=== PATIENT | female | born 1975 | race Caucasian/White ===

== ENCOUNTER → 2016-09-22 | Outpatient (CLI) | payer OTHER ==
[~2016-09-22] MED LIST: ACET-1256 PO; ATEN50TA8 PO; CHOL1000 PO; CHOL100027 PO; GADAVIST IV PRN; LSX20 PO; RXC5 PO; SYN100 PO; VITACAP26 PO
--- NOTE | 2016-09-22 11:00 | DIAGNOSTIC IMAGING REPORT ---
MRI OF THE CERVICAL SPINE WITH AND WITHOUT CONTRAST CLINICAL HISTORY: Neck pain radiating into right upper extremity. COMPARISON: Cervical spine radiographs June 25, 2011. TECHNIQUE: Utilizing a 1.5 Mary magnet and dedicated coil, multiplanar, multiecho imaging of the cervical spine was performed before and after intravenous administration of 12 of Gadavist. FINDINGS: There are findings consistent with a C5-C6 anterior discectomy and fusion. Cervical cord signal and caliber are normal. There is no intracanalicular mass or fluid collection. A 1 cm T2 hyperintense lesion within the T2 vertebral body is slightly T1 hyperintense likely reflects a hemangioma. C2-C3: The central canal and neural foramen are patent. C3-C4: The central canal and neural foramen are patent. C4-C5: There is mild posterior disc osteophyte complex. There is minimal narrowing of the central canal and left neural foramen. The right neural foramen is patent. C5-C6: Postsurgical findings are noted. There is no central canal stenosis. The right neural foramen is patent. The left neural foramen is also patent. C6-C7: There is posterior disc osteophyte complex with a superimposed right paracentral/right foraminal disc protrusion. There is moderate narrowing of the right aspect of the canal and severe narrowing of the right neural foramen. There is mild narrowing of the left neural foramen. C7-T1: A left paracentral disc protrusion is noted which results in mild to moderate narrowing of the left aspect of the canal. The neural foramen are patent. IMPRESSION: 1. Status post C5-C6 anterior discectomy and fusion. 2. Moderate to large right paracentral/right foraminal disc protrusion at C6-C7 that results in moderate narrowing of the right aspect of the canal and severe narrowing of the right neural foramen. 3. Small left paracentral disc protrusion at C6-C7. 4. Small to moderate left paracentral disc protrusion at T1-T2 that results in moderate narrowing of the left aspect of the canal. Electronically signed by: Meir Hood M.D. 09/22/2016 10:59 AM Dictated Date/Time: 09/22/2016 10:49 AM
== END | disposition home or self-care (01) ==
LOC: C.MRIBC 09:17
PROVIDERS: ATTEND Orthopaedic Surgery Orthopaedic Surgery of the Spine
DX: M50.90 Cervical disc disorder, unspecified, unspecified cervical region (principal)

== ENCOUNTER 2016-10-15 05:25 | Inpatient (IN) | payer OTHER ==
[2016-10-06 13:51] VITALS: Ht 165.1 cm; Wt 125.7 kg
--- NOTE | 2016-10-06 14:23 | PAT Medication Instructions ---
Service Date Oct 06, 2016. Current Home Medication List Acetaminophen (Tylenol), 1,000 MG PO PRN Atenolol (Tenormin), 50 MG PO QAM Cholecalciferol (Vitamin D3), 1 TAB PO QAM Furosemide (Lasix *), 20 MG PO PRN Vitamins C & E (Vitamin C), 1 TAB PO PRN Medication Instructions For Your Scheduled Surgery - Hold the following medications the morning of surgery: Vitamins C (Vitamin C), 1 TAB PO PRN Furosemide (Lasix *), 20 MG PO PRN Cholecalciferol (Vitamin D3), 1 TAB PO QAM - Take the following medications the morning of surgery with a sip of water: Atenolol (Tenormin), 50 MG PO QAM Acetaminophen (Tylenol), 1,000 MG PO PRN (if needed) - Take the following medications as scheduled the night before surgery: Acetaminophen (Tylenol), 1,000 MG PO PRN (if needed) Furosemide (Lasix *), 20 MG PO PRN (if needed) If you have any questions please call us at [phone] or [phone] or [phone]
--- NOTE | 2016-10-06 14:55 | DIAGNOSTIC IMAGING REPORT ---
CHEST 2 VIEWS ROUTINE CLINICAL HISTORY: Preoperative chest COMPARISON STUDY: No previous studies for comparison. FINDINGS: The heart is mildly enlarged. There is no failure. There is no focal pulmonary consolidation. There are no pleural effusions. Postsurgical changes are visualized within the cervical spine.[ IMPRESSION: No active disease in the chest. Electronically signed by: Leif Eid M.D. 10/06/2016 2:54 PM Dictated Date/Time: 10/06/2016 2:53 PM
[2016-10-06 14:57] LABS: URINE APPEARANCE CLEAR (CLEAR); URINE BILIRUBIN NEG (NEG); URINE COLOR YELLOW; URINE NITRITE NEG (NEG); URINE SPECIFIC GRAVITY 1.007 (1.000-1.030); UROBILINOGEN NEG (NEG)
[2016-10-06 15:13] LABS: MANUAL MICROSCOPIC REQUIRED? NO; REVIEW REQ? NO
[2016-10-06 15:56] LABS: BASO % 0.6 %; BASO ABS # 0.04 K/uL (0-0.2); COMPLETE YES; EOS % 5.2 %; HEMATOCRIT 39.1 % (37-47); IG% 0.1 %; LYMPH % 20.5 %; LYMPH ABS # 1.42 K/uL (1.2-3.4); MEAN CELL VOLUME 91.1 fL (80-100); MEAN CORPUSCULAR HEMOGLOBIN 29.6 pg (25-34); MEAN CORPUSCULAR HGB CONC 32.5 g/dl (32-36); MEAN PLATELET VOLUME 11.5 fL (7.4-10.4); MONO % 4.3 %; NEUT % 69.3 %; PLATELET COUNT 233 K/uL (130-400); RED BLOOD COUNT 4.29 M/uL (4.2-5.4); WHITE BLOOD COUNT 6.91 K/uL (4.8-10.8)
[2016-10-06 16:17] LABS: BUN/CREATININE RATIO 9.8 (10-20); CALCIUM 8.9 mg/dl (8.5-10.1); CREATININE 1.1 mg/dl (0.60-1.20); POTASSIUM 4.3 mmol/L (3.5-5.1)
--- NOTE | 2016-10-08 14:05 | HISTORY & PHYSICAL EXAMINATION ---
DATE OF ADMISSION: 10/15/2016 CHIEF COMPLAINT: Neck and right arm pain. HISTORY OF PRESENT ILLNESS: The patient is a 41-year-old female with a history of complaints as above. Prior C5-C6 ACDF done by myself and did well. The approach was from the right side at that time. She reports she has developed recurrent symptoms that severelylimit her quality of life. She has subjective numbness and weakness in the right hand. due to her quality of life and MR findings which indicated a large disk herniation at C6-C7 below the prior fusion done at C5-C6, she desires surgery. PAST MEDICAL HISTORY: Hypertension and obesity. PAST SURGICAL HISTORY: Hysterectomy, right total hip arthroplasty, prior ACDF C5-C6, and cholecystectomy. MEDICATIONS: Atenolol. ALLERGIES: None. FAMILY HISTORY: Denies spine problems, cancer, bleeding, diathesis or problems with anesthesia. SOCIAL HISTORY: The patient does not use alcohol or tobacco. REVIEW OF SYSTEMS: She denies incontinence, chest pain, shortness of breath, dyspnea on exertion, history of cancer, diabetes or bleeding tendency. PHYSICAL EXAMINATION: GENERAL: The patient is a heavyset female who is 5 feet 5 inches tall, weighs 170 pounds. She stands and ambulates with slight ataxia, normal gait. NEURO: She has normal affect and answers questions appropriately and is AA&Ox3. NECK: Revealed no lymphadenopathy. There is a prior right-sided scar from previous anterior cervical approach. She has limited forward flexion due to increased pain radiating down in the arm. Positive spurlings to right. EXTREMITIES: She has normal range of motion of the right upper extremity. She reports subjective sensory disturbance in the radial digits to light touch but intact sensation to light touch in all dermatomes. She has 5/5 strength in both upper extremities, palpable radial pulses bilaterally. DTRs are 1+ bilaterally with no UE clonus HEART: Revealed regular rate and rhythm. LUNGS: Clear to auscultation bilaterally. ABDOMEN: soft NT, centripetal obesity ASSESSMENT AND PLAN: The patient has C6-C7 disk herniation with effacement of the spinal cord and right upper extremity radiculopathy. She has had a prior fusion C5-C6 and cervical plate placed. Recommended C6-C7 anterior cervical diskectomy and fusion with possible hardware removal at C5-C6. Risks are reviewed and she would like to proceed. [facility]
[~2016-10-15] VITALS: Ht 165.1 cm; Wt 125.7 kg
[2016-10-15] VITALS (18 sets, daily range): BP systolic 122–149; BP diastolic 62–86; PULSE 68–95; TEMP 36.5–37.1; O2SAT 95–99
[~2016-10-15 05:25] MED LIST changes: -CHOL100027 PO; -GADAVIST IV PRN; -RXC5 PO; -SYN100 PO
[2016-10-15] MEDS ORDERED: PREGABALIN 75 MG CAP PO SCH (06:00)
[2016-10-15] MEDS ORDERED: LACTATED RINGER'S 1000ML 1,000 ML IV SCH (06:00)
[2016-10-15] MEDS ORDERED: CEFAZOLIN 3000 MG/65 ML D5W IV SCH (06:00)
[2016-10-15] MEDS ORDERED: CeleBREX 200 MG CAP PO SCH (06:00)
[2016-10-15] MEDS ORDERED: FENTANYL CITRATE INJ 50 MCG/1 ML 2 ML VIAL ONE (06:58)
[2016-10-15] MEDS ORDERED: MIDAZOLAM HCL 1 MG/ML 2ML VIAL ONE (06:58)
[2016-10-15] MEDS ORDERED: HYDROmorphone INJ 2 MG/ML SYR/VIAL ONE (06:58)
[2016-10-15] MEDS ORDERED: KETAMINE HCL INJ 50 MG/ML 10 ML VIAL ONE (07:01)
[2016-10-15] MEDS ORDERED: BACITRACIN 50000 UNIT VIAL ONE (07:05)
[2016-10-15] MEDS ORDERED: THROMBIN 5000 UNITS KIT ONE (07:05)
[2016-10-15] MEDS ORDERED: ONDANSETRON INJ 2 MG/ML 2 ML VIAL IV PRN ×2 (07:15→09:15)
[2016-10-15] MEDS ORDERED: ATROPINE SULFATE 0.1 MG/ML 5ML SYR IV PRN (07:15)
[2016-10-15] MEDS ORDERED: EpHEDrine SULFATE INJ 50 MG/ML AMP IV PRN (07:15)
[2016-10-15] MEDS ORDERED: FENTANYL CITRATE INJ 50 MCG/1 ML 2 ML VIAL IV PRN (07:15)
--- NOTE | 2016-10-15 07:25 | History & Physical Bridge Note ---
H&P Re-Evaluation Bridge Note: I have examined the patient, reviewed the History & Physical and in the interval since the performance of the History & Physical I have noted the following changes of clinical significance: No changes noted
[2016-10-15] MEDS ORDERED: DiphenhydrAMINE HCL 50 MG/ML VIAL ONE (08:36)
[2016-10-15] MEDS ORDERED: LIDOCAINE HCL 2% 2 ML VIAL (20MG/ML) ONE (08:36)
[2016-10-15] MEDS ORDERED: EpHEDrine SULFATE 50MG/5ML SYR ONE (08:36)
[2016-10-15] MEDS ORDERED: ROCURONIUM BROMIDE 10 MG/ML 5 ML VIAL ONE (08:36)
[2016-10-15] MEDS ORDERED: DEXAMETHASONE SOD INJ 4 MG/ML VIAL ONE (08:36)
[2016-10-15] MEDS ORDERED: PROPOFOL IV EMULSION 10 MG/ML 20 ML VIAL IV ONE (08:36)
[2016-10-15] MEDS ORDERED: ONDANSETRON INJ 2 MG/ML 2 ML VIAL ONE ×2 (08:36→09:07)
[2016-10-15] MEDS ORDERED: GLYCOPYRROLATE INJ 0.2 MG/ML VIAL ONE ×2 (08:36→09:07)
[2016-10-15] MEDS ORDERED: NEOSTIGMINE METHYLSULFATE 5 MG/5 ML SYR ONE (08:36)
[2016-10-15] MEDS ORDERED: METOCLOPRAMIDE HCL INJ 5 MG/ML 2 ML VIAL ONE (08:36)
[2016-10-15] MEDS ORDERED: FLOSEAL HEMOSTATIC MATRIX 5ML TOP ONE (09:03)
--- NOTE | 2016-10-15 09:09 | [facility] Post Operative Brief Note ---
Immediate Operative Summary Operative Date Oct 15, 2016. Pre-Operative Diagnosis large disc hernation C6-7 Post-Operative Diagnosis large disc hernation C6-7 Procedure(s) Performed C6-C7 Anterior Cervical Discectomy and Fusion with Allograft Surgeon Dr. Papi Saba Bus Boy Surgeon(s) Luan Moore PA-C Estimated Blood Loss 10ML Findings dict Specimens A. explanted cervical hardware
[2016-10-15] MEDS ORDERED: LORAZEPAM 0.5 MG TAB PO PRN (09:15)
[2016-10-15] MEDS ORDERED: FUROSEMIDE 20 MG TAB PO PRN (09:15)
[2016-10-15] MEDS ORDERED: ACETAMINOPHEN IV 1,000 MG in EMPTY BAG 0 ML IV PRN (09:15)
[2016-10-15] MEDS ORDERED: HYDROmorphone INJ 1 MG/ML SYR IV PRN (09:15)
[2016-10-15] MEDS ORDERED: DEXAMETHASONE INJ 8 MG in SYRINGE 0 ML IV PRN (09:15)
[2016-10-15] MEDS ORDERED: RACEPINEPHRINE 2.25% NEBU SOLN 0.5 ML VIAL INH PRN (09:15)
[2016-10-15] MEDS ORDERED: LORAZEPAM INJ 0.5 MG in SYRINGE 0.75 ML IV PRN (09:15)
[2016-10-15] MEDS ORDERED: NALOXONE HCL 0.4 MG/1 ML VIAL/CARP IV PRN (09:15)
--- NOTE | 2016-10-15 11:36 | Anesthesiology Progress Note ---
Anesthesia Post Op Note Date & Time Oct 15, 2016 at 11:36 Vital Signs Pain Intensity: 0.0 Vital Signs Past 12 Hours Date Time Temp Pulse Resp B/P (MAP) Pulse Ox O2 Delivery O2 Flow Rate FiO2 10/15/16 10:55 37.0 73 16 137/75 98 Nasal Cannula 3.0 Humidified Oxygen 10/15/16 10:55 98 Nasal Cannula 3.0 10/15/16 10:55 37.0 73 16 137/75 (95) 98 Nasal Cannula 3.0 10/15/16 10:55 98 Nasal Cannula 3.0 Humidified Oxygen 10/15/16 10:24 36.6 62 16 128/69 (86) 98 Mask 3 10/15/16 10:21 123/82 10/15/16 10:20 63 12 10/15/16 10:20 58 12 98 10/15/16 10:16 139/74 10/15/16 10:15 59 11 10/15/16 10:15 56 11 97 10/15/16 10:11 142/76 10/15/16 10:10 71 16 98 10/15/16 10:10 72 16 10/15/16 10:06 138/76 10/15/16 10:05 65 13 98 10/15/16 10:05 65 13 10/15/16 10:01 144/77 10/15/16 10:00 69 15 99 10/15/16 10:00 69 15 10/15/16 09:59 72 17 10/15/16 09:59 72 17 98 10/15/16 09:56 147/84 10/15/16 09:54 70 11 10/15/16 09:54 70 11 98 10/15/16 09:51 138/79 10/15/16 09:49 70 14 100 10/15/16 09:49 70 14 10/15/16 09:48 74 16 99 10/15/16 09:48 73 16 10/15/16 09:46 150/84 10/15/16 09:43 72 7 97 10/15/16 09:43 73 7 10/15/16 09:41 155/85 10/15/16 09:38 76 11 99 10/15/16 09:38 76 11 10/15/16 09:36 144/77 10/15/16 09:34 147/83 10/15/16 09:33 84 99 10/15/16 09:33 36.1 78 16 147/83 99 Mask 10 10/15/16 09:33 84 10/15/16 05:59 37.1 68 16 140/79 96 Room Air Notes Mental Status: alert / awake / arousable, participated in evaluation Pt Amnestic to Procedure: Yes Nausea / Vomiting: adequately controlled Pain: adequately controlled Airway Patency, RR, SpO2: stable & adequate BP & HR: stable & adequate Hydration State: stable & adequate Anesthetic Complications: no major complications apparent
--- NOTE | 2016-10-15 12:02 | DIAGNOSTIC IMAGING REPORT ---
CERVICAL 2 OR 3 VIEWS CLINICAL HISTORY: C6-C7 ACDF COMPARISON STUDY: MRI the cervical spine September 22, 2016. Fluoroscopy time: 8 seconds. FINDINGS: 3 fluoroscopic images demonstrate a previous C5-C6 anterior discectomy and fusion was 2 screws at the C5 level. Although partially obscured on this exam, there is a suspected interval C6-C7 anterior discectomy and fusion. IMPRESSION: Interval C6-C7 anterior discectomy and fusion. Electronically signed by: Meir Hood M.D. 10/15/2016 12:00 PM Dictated Date/Time: 10/15/2016 11:59 AM
[2016-10-15] MEDS ORDERED: ACETAMINOPHEN IV 1000MG/100ML IV PRN (12:15)
[2016-10-15] MEDS: SODIUM CHLORIDE 0.9% 1000ML 1,000 ML IV SCH ×2 (12:18→21:17)
[2016-10-15] MEDS ORDERED: SCOPOLAMINE 1.5 MG TDSY TD SCH (12:30)
[2016-10-15] MEDS: CEFAZOLIN IV 1,000 MG in DEXTROSE 5% 50ML 50 ML IV SCH ×2 (15:42→23:17)
[2016-10-15] MEDS: CHECK SCOPOLAMINE PATCH PLACEMENT SCH ×2 (15:42→23:12)
[2016-10-15] MEDS: DEXAMETHASONE INJ 6 MG in SYRINGE 0 ML IV SCH ×2 (15:42→23:13)
[2016-10-15] MEDS: OXYCODONE HCL IR 5 MG TAB (IMMEDIATE RELEASE) PO PRN ×3 (17:05→23:12)
--- NOTE | 2016-10-15 19:30 | OPERATIVE REPORT ---
DATE OF OPERATION: 10/15/2016 PREOPERATIVE DIAGNOSES: 1. Cervical herniated nucleus pulposus C6-7. 2. Previous cervical fusion C5-6 with anterior cervical plate. POSTOPERATIVE DIAGNOSES: Same. PROCEDURES: 1. Anterior cervical discectomy and fusion and application of PEEK intervertebral spacer with local autograft and DBM putty C6-C7. 2. Anterior cervical instrumentation C6-7 with LDR blade plates. 3. Hardware removal, C6. SURGEON: Dr. Saba. COLOR CHECKER: Luan Moore PA-C. Please note he participated in all portions of the procedure and was critical for performance of procedure, participated in positioning, prepping, draping, retraction, and wound closure. ANESTHESIA: General endotracheal anesthesia. COMPLICATIONS: None. ESTIMATED BLOOD LOSS: Minimal. DESCRIPTION OF PROCEDURE: After identification of patient and operative level, she was brought to the OR where she underwent induction of general anesthesia. She was then positioned supine on Chris OR table with Jack horseshoe headholder. The arms were tucked to the sides and well padded. Shoulders were taped distally and the anterior neck was sterilely prepped and draped in usual fashion. Antibiotics were administered. Time-out was performed, level was confirmed and skin incision was made on left side of the neck just above the clavicle and routine anterior cervical exposure was performed with blunt dissection medial to sternocleidomastoid and carotid sheath. Some scar tissue was encountered at the site of previous surgery and was mobilized with Kitners. I then identified the previous cervical plate and swept the anterior fibrosis away from it. I then identified the anterior aspect of C6-7, marked it with electrocautery and then mobilized the longus colli over C6-7. I then placed a self-retaining cervical retractor deep to the longus colli. I then placed Bonfield pins into the body of C6 and C7. The pin at C6 was placed through the plate in a midline hole. I then removed the screws of the C6 plate in the body of C6. This was due to the position which would impact the later blade insertion. I did not remove the entire plate as this would have necessitated more dissection through the scar tissue. I then applied slight distraction across the disc space and did a complete discectomy at C6-7. Posterior osteophytes, posterior annulus and PLL were taken down with Kerrisons and wide foraminotomy was performed. I could pass the probe along the nerve root and the right C6-7 neural foramen. I then decorticated the endplates at C6-7 with a high speed yola and determined graft size with trial sizers. I then filled the PEEK cage with local bone from osteophyte takedown and DBM putty and tamped into position. I deployed LDR blade plates into the body of C6-7 and impacted them completely. I then removed the Bonfield distraction pins and the insertion handle and applied bone wax over the holes. I then obtained final x-rays and confirmed good cage and blade position. I then irrigated with bacitracin solution and confirmed hemostasis prior to layered closure with a small round drain. All sponge and needle counts were correct at the end of the case. I attest to the content of the Intraoperative Record and any orders documented therein. Any exception s are noted below.
[2016-10-16] VITALS (12 sets, daily range): BP systolic 112–146; BP diastolic 56–77; PULSE 58–96; TEMP 36.8–37; O2SAT 94–99
[2016-10-16] MEDS: OXYCODONE HCL IR 5 MG TAB (IMMEDIATE RELEASE) PO PRN ×2 (05:31→10:29)
--- NOTE | 2016-10-16 07:45 | Anesthesiology Progress Note ---
Anesthesia Post Op Note Date & Time Oct 16, 2016 at 07:45 Vital Signs Pain Intensity: 3.0 Vital Signs Past 12 Hours Date Time Temp Pulse Resp B/P (MAP) Pulse Ox O2 Delivery O2 Flow Rate FiO2 10/16/16 07:27 82 16 96 Room Air 10/16/16 07:16 36.9 78 18 141/60 (87) 99 Nasal Cannula 3.0 Humidified Air 10/16/16 06:59 36.9 73 14 125/74 97 Nasal Cannula Humidified Oxygen 10/16/16 05:05 36.9 82 16 146/77 99 Nasal Cannula 3.0 Humidified Oxygen 10/16/16 03:19 88 16 98 Nasal Cannula 3.0 10/16/16 03:02 36.8 96 14 116/72 97 Nasal Cannula Humidified Oxygen 10/16/16 00:58 37.0 92 17 124/75 96 Nasal Cannula 3.0 Humidified Oxygen 10/15/16 23:11 70 16 96 Nasal Cannula 3.0 10/15/16 23:00 Nasal Cannula 3.0 Humidified Oxygen 10/15/16 23:00 36.9 91 16 124/75 95 Nasal Cannula 3.0 Humidified Oxygen 10/15/16 22:00 37.0 85 18 139/72 (94) 98 Nasal Cannula 3.0 Humidified Oxygen 10/15/16 22:00 37.0 85 18 139/72 98 Nasal Cannula 3.0 Humidified Oxygen 10/15/16 20:00 36.6 84 18 149/81 (103) 97 Nasal Cannula 3.0 Humidified Oxygen 10/15/16 20:00 36.6 84 18 149/81 97 Nasal Cannula 3.0 Humidified Oxygen Notes Mental Status: alert / awake / arousable, participated in evaluation Pt Amnestic to Procedure: Yes Nausea / Vomiting: adequately controlled Pain: adequately controlled Airway Patency, RR, SpO2: stable & adequate BP & HR: stable & adequate Hydration State: stable & adequate Anesthetic Complications: no major complications apparent
[2016-10-16] MEDS: CHECK SCOPOLAMINE PATCH PLACEMENT SCH (08:00)
[2016-10-16] MEDS: CEFAZOLIN IV 1,000 MG in DEXTROSE 5% 50ML 50 ML IV SCH (08:35)
[2016-10-16] MEDS: DEXAMETHASONE INJ 6 MG in SYRINGE 0 ML IV SCH (08:38)
[2016-10-16] MEDS ORDERED: RXC5 PO (11:23)
--- NOTE | 2016-10-16 11:24 | Discharge Instructions ---
Discharge Instructions Date of Service Oct 16, 2016. Admission Reason for Admission: Cervical Spinal Stenosis Discharge Discharge Diagnosis / Problem: same Discharge Goals Goal(s): Decrease discomfort Activity Recommendations Activity Limitations: per Instructions/Follow-up section Lifting Limitations: no more than 10 pounds Exercise/Sports Limitations: until after follow-up appointment May Resume Sexual Activity: when tolerated Shower/Bathe: may shower/bathe in 3 days . Instructions / Follow-Up Instructions / Follow-Up ACTIVITY RECOMMENDATIONS: SELF CARE INSTRUCTIONS AFTER CERVICAL FUSIONS 1. No smoking. Smoking drastically decreases the chance of a solid fusion. 2. No bending, lifting more than 5 pounds, or twisting (roll like a log when turning in bed). 3. You may shower 3 days after surgery. Thoroughly dry wound. Do not soak in the tub. 4. Cervical collar: Must be worn at all times including sleeping. You may remove the brace only to bath, eat and if you are sitting in a recliner. 5. Please walk as much as you can for exercise. Gradually increase the distance that you walk as your endurance increases. SPECIAL CARE INSTRUCTIONS: VERY IMPORTANT TO READ AND REVIEW A. Do not take any anti-inflammatory medications (i.e. Indocin, Advil, Aspirin, Naprosyn, Aleve, Motrin, etc.) as these may inhibit the chance of a solid fusion. Tylenol is okay to take. B. Your surgical incision has been closed with a cosmetic suture under the skin that will dissolve in about 6 weeks. In 14 days, you can use a pair of clean scissors and cut the suture that is left outside of the skin at the ends of your incision. C. Complications are uncommon, but please contact us if you have any signs or symptoms of: 1. wound infection (fever higher than 102.5 degrees F, redness, separation of wound, drainage, or increasing pain from the incision) 2. blood clots in legs (pain, swelling, redness and warmth in legs) 3. urinary tract infection (fever higher than 102.5 degrees, burning upon urination or increased frequency of urination) 4. nerve problems (inability to walk on your toes or heels, numbness, loss of bowel or bladder control) 5. any other symptoms that concern you. D. Please call the office at if you have any concerns or questions about your operation or recovery. MANAGING PAIN AFTER SPINAL SURGERY 1. Narcotic medication is intended for short-term use and will be provided for surgical pain. Surgical pain usually lasts for a period of 4-6 weeks. Narcotic medication includes Percocet, Vicodin, Darvocet, Tylenol #3 or Lortab. 2. Longer-term pain is more appropriately treated with non-narcotic medication such as Tylenol ES. 3. Muscle spasm is not appropriately treated with narcotics. Muscle relaxers such as Soma, Flexeril or Skelaxin can be used along with Tylenol ES. 4. Remember that we all live with some "aches and pains". This is not unusual or uncommon after an injury or as we get older. 5. We will provide appropriate medication within the normal guidelines of their prescribed use. We will also be very cautious and aware of potential abuse and extended duration of patients' medication needs. 6. Please allow 2-3 days to process refills. Prescriptions will not be mailed but must be picked up at the office. FOLLOW UP VISIT: Keep your scheduled follow-up appointment. Any questions, please call the office at . Current Hospital Diet Patient's current hospital diet: Clear Liquid Diet Discharge Diet Recommended Diet: Regular Diet Procedures Procedures Performed: C6-C7 Anterior Cervical Discectomy and Fusion with Allograft Pending Studies Studies pending at discharge: no Medical Emergencies . Who to Call and When: Medical Emergencies: If at any time you feel your situation is an emergency, please call 911 immediately. . Non-Emergent Contact Non-Emergency issues call your: Surgeon . "Provider Documentation" section prepared by Papi Saba. . VTE Core Measure Inpt VTE Proph given/why not?: SCD's [place] Drug Monitoring Program Search Results: patient reviewed within database, no issues identified
--- NOTE | 2016-10-16 11:26 | Orthopedic Progress Note ---
Orthopedic Progress Note Date of Service Oct 16, 2016. Subjective Post OP Day: 1 Reports: feeling well, pain controlled w PO medications, Denies: complaints, chest pain, SOB, nausea / vomiting, light headedness, calf pain, using MOVIE PROJECTIONIST Objective calves soft nontender, N/V intact, dressing C/D/I, A&O x3, hemovac drainage Date Time Temp Pulse Resp B/P (MAP) Pulse Ox O2 Delivery O2 Flow Rate FiO2 10/16/16 11:03 36.9 58 16 112/56 (74) 94 Room Air 10/16/16 09:39 36.8 79 16 140/61 (87) 95 Room Air 10/16/16 07:50 Humidified Oxygen 3.0 10/16/16 07:27 82 16 96 Room Air 10/16/16 07:16 36.9 78 18 141/60 (87) 99 Nasal Cannula 3.0 Humidified Air 10/16/16 06:59 36.9 73 14 125/74 97 Nasal Cannula Humidified Oxygen 10/16/16 05:05 36.9 82 16 146/77 99 Nasal Cannula 3.0 Humidified Oxygen 10/16/16 03:19 88 16 98 Nasal Cannula 3.0 10/16/16 03:02 36.8 96 14 116/72 97 Nasal Cannula Humidified Oxygen 10/16/16 00:58 37.0 92 17 124/75 96 Nasal Cannula 3.0 Humidified Oxygen 10/15/16 23:11 70 16 96 Nasal Cannula 3.0 10/15/16 23:00 Nasal Cannula 3.0 Humidified Oxygen 10/15/16 23:00 36.9 91 16 124/75 95 Nasal Cannula 3.0 Humidified Oxygen 10/15/16 22:00 37.0 85 18 139/72 (94) 98 Nasal Cannula 3.0 Humidified Oxygen 10/15/16 22:00 37.0 85 18 139/72 98 Nasal Cannula 3.0 Humidified Oxygen 10/15/16 20:00 36.6 84 18 149/81 (103) 97 Nasal Cannula 3.0 Humidified Oxygen 10/15/16 20:00 36.6 84 18 149/81 97 Nasal Cannula 3.0 Humidified Oxygen 10/15/16 19:32 95 16 98 Nasal Cannula 3.0 10/15/16 18:00 36.5 82 18 143/86 98 Nasal Cannula 3.0 Humidified Oxygen 10/15/16 18:00 36.5 82 18 143/86 (105) 98 Nasal Cannula 3.0 Humidified Oxygen 10/15/16 16:00 36.7 83 18 146/80 96 Nasal Cannula 3.0 Humidified Oxygen 10/15/16 16:00 36.7 83 18 146/80 (102) 96 Nasal Cannula 3.0 Humidified Oxygen 10/15/16 15:50 96 Nasal Cannula 3.0 Humidified Oxygen 10/15/16 15:24 85 16 98 Nasal Cannula 3.0 10/15/16 13:55 36.7 81 18 124/62 (82) 97 Nasal Cannula 4.0 Humidified Air 10/15/16 13:55 36.7 81 18 124/62 (86) 97 Nasal Cannula 4.0 Humidified Air 10/15/16 13:00 37.1 74 18 122/67 (86) 98 Nasal Cannula 45.0 Humidified Air 10/15/16 12:55 37.1 74 18 122/67 (85) 98 Nasal Cannula 45.0 Humidified Air 10/15/16 12:00 36.8 71 18 124/65 (86) 99 Nasal Cannula 4.0 Humidified Air 10/15/16 11:54 36.8 71 18 124/65 (84) 99 Nasal Cannula 4.0 Humidified Air 10/15/16 11:34 89 16 98 Nasal Cannula 3.0 Assessment & Plan Assessment: stable Plan: doing well, d/c home
--- NOTE | 2016-10-23 10:06 | Discharge Summary ---
Orthopedic Discharge Summary Admission Date/Reason Oct 15, 2016 at 09:12 Cervical Spinal Stenosis. Discharge Date/Disposition Oct 16, 2016 Home Diagnosis Principal Diagnosis: same Procedure(s) Performed ACDF Medication Reconciliation New Medications: Oxycodone HCl (Oxycodone HCl) 5 Mg Tab 5-10 MG PO Q4H PRN for moderate-severe pain, #60 TAB Continued Medications: Acetaminophen (Tylenol) 500 Mg Tab 1000 MG PO PRN, TAB Atenolol (Tenormin) 50 Mg Tab 50 MG PO QAM, 0 Refills Cholecalciferol (Vitamin D3) 1,000 Unit Tab 1 TAB PO QAM for 90 Days, #90 TAB 3 Refills Furosemide (Lasix *) 20 Mg Tab 20 MG PO PRN, 0 Refills Vitamins C & E (Vitamin C) 1 Cap Cap 1 TAB PO PRN Admission Physical Exam As per Admitting History & Physical. Hospital Course Patient was admitted for elective cervical surgery. They tolerated procedure well, were transferred to ortho floor where they were stable, mobilized, and had pain controlled on oral meds. They were discharged in stable condition Discharge Instructions Please refer to the electronic Patient Visit Report (Discharge Instructions) for additional information.
== END 2016-10-16 13:41 | disposition home or self-care (01) | DRG 472 ==
LOC: C.ACU 05:25 → C.3E 09:12 → ENRESERV 10:24
PROVIDERS: ADMIT Orthopaedic Surgery Orthopaedic Surgery of the Spine; ATTEND Orthopaedic Surgery Orthopaedic Surgery of the Spine
PROC: 0RP104Z Removal of Internal Fixation Device from Cervical Vertebral Joint, Open Approach (ICD-10-PCS; principal; 2016-10-15 07:30)
PROC: 0RT30ZZ Resection of Cervical Vertebral Disc, Open Approach (ICD-10-PCS; principal; 2016-10-15 07:30)
PROC: 0RG10A0 Fusion of Cervical Vertebral Joint with Interbody Fusion Device, Anterior Approach, Anterior Column, Open Approach (ICD-10-PCS; principal; 2016-10-15 07:30)
DX: M50.123 Cervical disc disorder at C6-C7 level with radiculopathy (principal); Z68.42 Body mass index [BMI] 45.0-49.9, adult; R20.0 Anesthesia of skin; I10 Essential (primary) hypertension; R60.0 Localized edema; E66.01 Morbid (severe) obesity due to excess calories; Z98.1 Arthrodesis status; Z96.641 Presence of right artificial hip joint; Z79.899 Other long term (current) drug therapy